=== PATIENT | male | born 1980 | race Caucasian/White ===

== ENCOUNTER 2022-06-25 20:10 | Emergency (ER) | payer OTHER, SELFPAY ==
[2022-06-25 20:11] VITALS: TEMP 36.5; BMI 37.3
[2022-06-25 20:16] VITALS: BP 152/91; PULSE 83; RESP 18; O2SAT 96
[2022-06-25 20:33] VITALS: BP 155/70; BP 169/100; BP 172/111; PULSE 101; PULSE 86; PULSE 92
--- NOTE | 2022-06-25 20:33 | EKG12_ITS ---
Test Reason : CP Blood Pressure : / mmHG Vent. Rate : 086 BPM Atrial Rate : 086 BPM P-R Int : 174 ms QRS Dur : 090 ms QT Int : 358 ms P-R-T Axes : 050 003 017 degrees QTc Int : 428 ms Normal sinus rhythm Normal ECG Confirmed by LILY LAWLER, RICHARD ([id number]), graphics editor MEDARDO CRABTREE ([id number]) on 06/28/2022 1:03:10 PM Referred By: ROBERT Confirmed By:RICHARD BAUTISTA MD
--- NOTE | 2022-06-25 20:52 | NURSING ---
bedside spco2 level 29. MD notified.
[2022-06-25 20:56] LABS: Bedside Glucose 85 mg/dL (74-106)
--- NOTE | 2022-06-25 20:58 | EDS_ITS ---
HPI History of Present Illness Chief Complaint: Syncope Informant: patient Narrative Narrative: Brought by EMS for syncopal episode. Symptoms occurred around 7:30 PM. 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 He started feeling lightheaded dizzy. He sat down for 5 minutes he tried working again. He felt similar symptoms walking in the house and symptoms walked there and he passed out. He had prodromal shortness of breath there is no chest pains. He states slight headache. Denies history of similar. Denies recent travel or surgery immobilizations. No history of PE or DVT. Denies any medical history. Father with strokes in the past, denies any known sudden heart . Shortly after evaluation reported from EMS he had a 4 cylinder engine running in his shop. He states he had a running for an hour and shut it off when he returned from supper. He is done this in the past he states he has had headaches which he left before however this feels different. PFSH [facility], [facility] Home Medications NK 06/25/22 [History Last Taken Unknown] Allergy/AdvReac Type Severity Reaction Status Date / Time No Known Allergies Allergy Verified 06/25/22 20:20 Social History Smoking Status: Never smoker ROS ROS ED Constitutional Constitutional ED: Denies chills, fever(s) or sweats Eyes Eyes: Denies change in vision ENT ENT ED: Denies dysphagia or sore throat Cardiovascular Cardiovascular: Denies chest pain, leg edema, palpitations or racing heartbeat Respiratory/Chest Respiratory/Chest: Reports dyspnea and other Details: Lightheaded and syncope ; Denies cough or dyspnea on exertion Gastrointestinal Gastrointestinal: Denies abdominal pain, diarrhea, nausea or vomiting Genitourinary Genitourinary ED: Denies dysuria, hematuria or urinary frequency Musculoskeletal Musculoskeletal: Denies back pain, extremity pain or neck pain Integumentary Denies rash or wounds Neurologic Neurologic: Reports headache(s); Denies paresthesias or weakness EXAM Physical Exam Const Vital Signs: 06/25/22 20:11 06/25/22 20:16 06/25/22 20:17 Temperature 97.7 F L Temperature Source Temporal Pulse Rate 83 Pulse Rate [Lying] Pulse Rate [Sitting (for 1 minute prior to obtaining)] Pulse Rate [Standing (for 1 minute prior to obtaining)] Respiratory Rate 18 Respiratory Effort Normal Non-Labored Respiratory Pattern Normal Blood Pressure 152/91 H Blood Pressure [Lying] Blood Pressure [Sitting (for 1 minute prior to obtaining)] Blood Pressure [Standing (for 1 minute prior to obtaining)] Blood Pressure Mean 111 Blood Pressure Mean [Lying] Blood Pressure Mean [Sitting (for 1 minute prior to obtaining)] Blood Pressure Mean [Standing (for 1 minute prior to obtaining)] Pulse Ox 96 Oxygen Delivery Method Room Air Oxygen Flow Rate (L/min) 06/25/22 20:33 06/25/22 20:37 06/25/22 20:57 Temperature Temperature Source Pulse Rate Pulse Rate [Lying] 86 Pulse Rate [Sitting (for 1 minute prior to obtaining)] 92 Pulse Rate [Standing (for 1 minute prior to obtaining)] 101 H Respiratory Rate Respiratory Effort Respiratory Pattern Blood Pressure Blood Pressure [Lying] 155/70 H Blood Pressure [Sitting (for 1 minute prior to obtaining)] 172/111 H Blood Pressure [Standing (for 1 minute prior to obtaining)] 169/100 H Blood Pressure Mean Blood Pressure Mean [Lying] 98 Blood Pressure Mean [Sitting (for 1 minute prior to obtaining)] 131 Blood Pressure Mean [Standing (for 1 minute prior to obtaining)] 123 Pulse Ox Oxygen Delivery Method Room Air Non-Rebreather Oxygen Flow Rate (L/min) 15 06/25/22 22:38 06/26/22 01:00 Temperature Temperature Source Pulse Rate 55 L Pulse Rate [Lying] Pulse Rate [Sitting (for 1 minute prior to obtaining)] Pulse Rate [Standing (for 1 minute prior to obtaining)] Respiratory Rate 18 14 Respiratory Effort Respiratory Pattern Blood Pressure 141/79 H Blood Pressure [Lying] Blood Pressure [Sitting (for 1 minute prior to obtaining)] Blood Pressure [Standing (for 1 minute prior to obtaining)] Blood Pressure Mean 99 Blood Pressure Mean [Lying] Blood Pressure Mean [Sitting (for 1 minute prior to obtaining)] Blood Pressure Mean [Standing (for 1 minute prior to obtaining)] Pulse Ox 100 99 Oxygen Delivery Method Non-Rebreather Oxygen Flow Rate (L/min) 15 Positive well nourished and well developed General Appearance ED: well developed and NAD HEENT Reports moist mucous membranes normocephalic and atraumatic Eyes PERRL, EOMs intact bilaterally and conjunctivae normal General Eye ED: Yes normal appearance of both eyes Neck no lymphadenopathy and supple Neck Narrative: No meningismus General: Negative for tenderness Chest Wall Chest: Negative for tenderness Resp normal respiratory effort and normal air movement Effort and Inspection: symmetric chest movement; Negative for respiratory distress Cardio regular rate, regular rhythm and no murmurs Peripheral Pulses: pulses 2+ throughout GI normal to inspection, nondistended, normoactive bowel sounds and non-tender Palpation: Negative for guarding or rebound tenderness present Back/Spine no CVA tenderness and no thoracic nor lumbar tenderness Extremity normal to inspection General Extremety ED: Negative for edema or tenderness General Extremity: Negative for edema Neuro oriented x3, CN's II-XII intact bilaterally and no sensory deficits noted Sensorium / Orientation: awake and alert Skin no rashes or lesions noted and no wounds MDM MDM MDM Narrative Medical decision making narrative: EKG normal, initial work-up initiated. Carboxyhemoglobin level on the finger was 29%. This is likely the cause. We will check basic labs, placed on 100% nonrebreather serum levels will be sent. He does not smoke. Clinically stable at this time. Orthostatics per nursing was negative. 2220: Carboxyhemoglobin was 23.4% in the on reevaluation clinically is feeling better. Blood work is stable. We will continue to monitor have finger checks for more adequate levels. 0100: Continued to be stable. Finger carboxyhemoglobin checked by myself at 3.6%. Patient will make sure to ventilate his shop. Of note fire department did go back to check a shop that had over 200 ppm of carbon monoxide. All questions were answered. Lab Data Attestation: I reviewed the patient's lab results. Labs: Laboratory Results - last 24 hr 06/25/22 06/25/22 06/25/22 19:45 19:45 20:36 WBC 5.1 RBC 5.04 Hgb 15.3 Hct 43.0 MCV 85.3 MCH 30.4 MCHC 35.6 RDW Std Deviation 39.9 RDW Coeff of [place] 13.1 Plt Count 206 MPV 10.0 Immature Gran % (Auto) 0.400 Neut % (Auto) 52.5 Lymph % (Auto) 35.2 [place] % (Auto) 8.8 Eos % (Auto) 2.5 Baso % (Auto) 0.6 Absolute Neuts (auto) 2.7 Absolute Lymphs (auto) 1.80 Nucleated RBC % 0 Sodium 136 Potassium 3.5 Chloride 103 Carbon Dioxide 26.0 Anion Gap 7 BUN 21 H Creatinine 1.02 Estim Creat Clear Calc 96.27 Est GFR (MDRD) Af Amer 104 Est GFR (MDRD) Non-Af 86 BUN/Creatinine Ratio 20.6 H Glucose 126 H Calcium 8.5 POC Glucose 85 ABG Data ABG results: ABG 06/25/22 06/25/22 20:58 21:13 VBG Carboxyhemoglobin Cancelled 23.4 H* EKG Initial EKG: Attestation: I personally reviewed and interpreted this EKG as follows: Comments: Sinus rate of 86, no ST or T wave changes. QTC of 428. Discharge Plan Triage Chief Complaint: Syncope ED Provider: Jose Alejandro Conley Dx/Rx/DC Orders Clinical Impression: Carbon monoxide poisoning, Syncope, Headache Instructions: Carbon Monoxide Poisoning Prescriptions: No Action NK Primary Care Provider: Care Physician,No Primary Referrals: NOT,DEFINED [Non-Staff] - Isac Boyce NP, [facility] [Med Staff - Adv Practice Prof] - Activity Restrictions/Additional Instructions: Make sure to ventilate your shop as you were exposed to carbon monoxide causing your symptoms. Disposition Disposition: Home, Self Care Discharge Date/Time: 06/26/22 01:17
[2022-06-25 20:59] LABS: Absolute Neutrophil Count 2.7 X10^3/uL (2.0-7.7); Basophil# 0.03 X10^3/uL; Basophil% 0.6 % (0-1); Eosinophil# 0.13 X10^3/uL; Eosinophils% 2.5 % (0-5); Hemoglobin 15.3 g/dL (13.0-16.5); Lymphocyte % 35.2 % (19-41); Mean Corp Hgb Conc 35.6 g/dL (32-36); Mean Corpuscular Hgb 30.4 pg (27.0-32.0); Mean Corpuscular Volume 85.3 fL (80-94); Monocyte# 0.45 X10^3/uL; Monocyte% 8.8 % (0-10); NRBC Flagged by Analyzer 0 % (0-5); Neutrophil # 2.68 X10^3/uL (2.7-7.7); Neutrophil % 52.5 % (47-70); Platelet Count 206 K/mm3 (150-450); RBC Distribution Width CV 13.1 % (11.6-14.6); RBC Distribution Width SD 39.9 fl (35.1-43.9); Red Blood Count 5.04 M/mm3 (4.6-6.2); White Blood Count 5.1 K/mm3 (4.4-11.0)
[2022-06-25 21:20] LABS: Anion Gap 7 (5-15); BUN 21 mg/dL (7-18); BUN/Creat Ratio 20.6 RATIO (10-20); Calcium,Total 8.5 mg/dL (8.5-10.1); Chloride 103 mmol/L (98-107); Creatinine, Serum 1.02 mg/dL (0.70-1.30); EST Glomerular Filtration Rate 86 mL/min (>60); Est Glom Filt Rate - Afr Amer 104 mL/min (>60); Estimated Creatinine Clearance 96.27 ml/min; Glucose 126 mg/dL (74-106); Potassium 3.5 mmol/L (3.5-5.1); Sodium Level 136 mmol/L (136-145)
[2022-06-25 21:37] LABS: Carboxyhemoglobin Frac (CO) 23.4 % (0.0-1.5)
[2022-06-25 22:38] VITALS: BP 141/79; PULSE 55; RESP 18; O2SAT 100
--- NOTE | 2022-06-26 00:19 | NURSING ---
bedside spco2 10 md notified
[2022-06-26 01:00] VITALS: RESP 14; O2SAT 99
== END 2022-06-26 01:17 | disposition home or self-care (01) ==
PROVIDERS: Emergency Provider Emergency Medicine; Visit Provider Emergency Medicine
DX: T59.7X1A Toxic effect of carbon dioxide, accidental (unintentional), initial encounter (principal); R55 Syncope and collapse; R06.02 Shortness of breath; Y99.0 Civilian activity done for income or pay
CPT/HCPCS: 80048; 82375; 82962; 85025; 93005; 96360; 99285; J7030; A4216